=== PATIENT | female | born 1955 ===

== ENCOUNTER 2021-07-06 07:43 | Day surgery (SDC) | payer OTHER | END 2021-07-06 13:35 | disposition home or self-care (01) | LOC: AMB-ENDOS 07:43 → CIR.AMB 13:30 → AMB-ENDOS 13:35 | PROVIDERS: ATTEND Surgery | DX: D12.0 Benign neoplasm of cecum (principal); Z20.822 Contact with and (suspected) exposure to COVID-19 ==